=== PATIENT | male | born 1980 | race Caucasian/White ===

== ENCOUNTER → 2020-12-08 | Outpatient (CLI) | payer BC ==
[~2020-12-08] MED LIST: NORCO 5-325 TA1 EACH PO
[2020-12-08 19:28] LABS: HEMOGLOBIN 15.1 gm/dl (14.0-17.5); RED BLOOD COUNT 5.17 M/UL (4.20-5.50); WHITE BLOOD COUNT 12.1 K/UL (4.5-11.0)
[2020-12-08 19:42] LABS: BUN/CREATININE RATIO 16 (0-10)
== END ==
LOC: LAB 15:39
PROVIDERS: Nurse Practitioner
DX: I20.9 Angina pectoris, unspecified (principal); R53.83 Other fatigue; E16.2 Hypoglycemia, unspecified; R00.0 Tachycardia, unspecified; R42 Dizziness and giddiness
CPT/HCPCS: 36415; 80053; 83036; 84443; 85025; 85652; 86140; 93005

== ENCOUNTER → 2020-12-15 | Outpatient (CLI) | payer BC | LOC: HEART 5 15:17 | DX: R00.2 Palpitations (principal) ==

== ENCOUNTER → 2020-12-29 | Outpatient (CLI) | payer BC | LOC: HEART 5 13:54 | DX: R55 Syncope and collapse (principal); R00.2 Palpitations; I08.1 Rheumatic disorders of both mitral and tricuspid valves | CPT/HCPCS: 93306 ==